=== PATIENT | female | born 1945 | race Caucasian/White ===

== ENCOUNTER → 2021-03-10 21:00 | Outpatient (REF) | payer MEDICARE, MEDICAID, SELFPAY | LOC: OLS.SW300 21:00 | PROVIDERS: Visit Provider Internal Medicine | DX: A04.72 Enterocolitis due to Clostridium difficile, not specified as recurrent (principal) | CPT/HCPCS: 87493 ==

== ENCOUNTER → 2021-03-14 14:50 | Outpatient (REF) | payer MEDICARE, MEDICAID, SELFPAY ==
[2021-03-14 15:17] LABS: Potassium 5.4 mmol/L (3.5-5.1)
== END ==
LOC: OLS.SW300 14:50
PROVIDERS: Visit Provider Internal Medicine
DX: N18.6 End stage renal disease (principal)
CPT/HCPCS: 36415; 84132

== ENCOUNTER → 2021-03-25 05:00 | Outpatient (REF) | payer MEDICARE, MEDICAID, SELFPAY ==
[2021-03-25 08:08] LABS: Hematocrit 22.8 % (37-47); Hemoglobin 7.1 g/dL (12.0-15.0); Mean Corp Hgb Conc 31.1 g/dL (32-36); Mean Corpuscular Hgb 27.2 pg (27.0-32.0); Mean Corpuscular Volume 87.4 fL (81-99); Mean Platelet Vol. 10.1 fl (6.2-12.0); Platelet Count 262 K/mm3 (150-450); RBC Distribution Width CV 18.6 % (11.6-14.6); RBC Distribution Width SD 58.9 fl (35.1-43.9); Red Blood Count 2.61 M/mm3 (4.2-5.4); White Blood Count 11.7 K/mm3 (4.4-11.0)
[2021-03-25 08:24] LABS: Albumin, Serum 1.3 g/dL (3.2-5.0); BUN 30 mg/dL (7-18); BUN/Creat Ratio 9.8 RATIO (10-20); Calcium,Total 7.9 mg/dL (8.5-10.1); Chloride 97 mmol/L (98-107); Creatinine, Serum 3.06 mg/dL (0.55-1.02); EST Glomerular Filtration Rate 16 mL/min (>60); Est Glom Filt Rate - Afr Amer 19 mL/min (>60); Glucose 99 mg/dL (74-106); Phosphorus 3.6 mg/dL (2.5-4.9); Potassium 3.4 mmol/L (3.5-5.1); Sodium Level 133 mmol/L (136-145)
== END ==
LOC: OLS.SW300 05:00
PROVIDERS: Visit Provider Internal Medicine
DX: Z99.2 Dependence on renal dialysis (principal); Z79.899 Other long term (current) drug therapy
CPT/HCPCS: 36415; 80069; 85027

== ENCOUNTER → 2021-03-29 21:00 | Outpatient (REF) | payer MEDICARE, MEDICAID, SELFPAY | LOC: OLS.SW300 21:00 | PROVIDERS: Visit Provider Internal Medicine | DX: A04.72 Enterocolitis due to Clostridium difficile, not specified as recurrent (principal) | CPT/HCPCS: 87493 ==

== ENCOUNTER → 2021-04-01 05:00 | Outpatient (REF) | payer MEDICARE, MEDICAID, SELFPAY ==
[2021-04-01 09:26] LABS: Hematocrit 22.8 % (37-47); Mean Corp Hgb Conc 30.7 g/dL (32-36); Mean Corpuscular Hgb 26.9 pg (27.0-32.0); Mean Corpuscular Volume 87.7 fL (81-99); Mean Platelet Vol. 9.7 fl (6.2-12.0); Platelet Count 216 K/mm3 (150-450); RBC Distribution Width CV 19.4 % (11.6-14.6); RBC Distribution Width SD 61.7 fl (35.1-43.9); White Blood Count 12.5 K/mm3 (4.4-11.0)
[2021-04-01 09:40] LABS: Albumin, Serum 1.3 g/dL (3.2-5.0); BUN 28 mg/dL (7-18); Calcium,Total 8.1 mg/dL (8.5-10.1); Chloride 99 mmol/L (98-107); Creatinine, Serum 3.11 mg/dL (0.55-1.02); EST Glomerular Filtration Rate 16 mL/min (>60); Est Glom Filt Rate - Afr Amer 19 mL/min (>60); Glucose 83 mg/dL (74-106); Phosphorus 3.9 mg/dL (2.5-4.9); Potassium 3.9 mmol/L (3.5-5.1); Sodium Level 137 mmol/L (136-145)
== END ==
LOC: OLS.SW300 05:00
PROVIDERS: Visit Provider Internal Medicine
DX: N18.9 Chronic kidney disease, unspecified (principal)
CPT/HCPCS: 36415; 80069; 85027

== ENCOUNTER → 2021-04-04 04:00 | Outpatient (REF) | payer MEDICARE, MEDICAID, SELFPAY ==
[2021-04-04 08:26] LABS: Hematocrit 23.9 % (37-47); Hemoglobin 7.4 g/dL (12.0-15.0); Mean Corpuscular Hgb 27.1 pg (27.0-32.0); Mean Corpuscular Volume 87.5 fL (81-99); Platelet Count 246 K/mm3 (150-450); RBC Distribution Width CV 19.1 % (11.6-14.6); RBC Distribution Width SD 61.4 fl (35.1-43.9); Red Blood Count 2.73 M/mm3 (4.2-5.4)
[2021-04-05 04:39] LABS: Cholesterol 124 mg/dL (200); High Density Lipoprotein 36 mg/dL; Triglycerides 54 mg/dL; Very Low Density Lipoprotein 11 mg/dL (5-40)
[2021-04-05 05:44] LABS: Hemoglobin A1c 5.2 % (3.8-5.6)
== END ==
LOC: OLS.SW300 04:00
PROVIDERS: Visit Provider Internal Medicine
DX: E11.22 Type 2 diabetes mellitus with diabetic chronic kidney disease (principal); N18.9 Chronic kidney disease, unspecified; D63.1 Anemia in chronic kidney disease
CPT/HCPCS: 36415; 80061; 83036; 85027

== ENCOUNTER → 2021-04-07 05:00 | Outpatient (REF) | payer MEDICARE, MEDICAID, SELFPAY ==
[2021-04-07 09:40] LABS: Hematocrit 24.6 % (37-47); Hemoglobin 7.7 g/dL (12.0-15.0); Mean Corp Hgb Conc 31.3 g/dL (32-36); Mean Corpuscular Hgb 26.7 pg (27.0-32.0); Mean Corpuscular Volume 85.4 fL (81-99); Mean Platelet Vol. 10.1 fl (6.2-12.0); Platelet Count 237 K/mm3 (150-450); RBC Distribution Width CV 18.5 % (11.6-14.6); RBC Distribution Width SD 58.2 fl (35.1-43.9); Red Blood Count 2.88 M/mm3 (4.2-5.4); White Blood Count 10.2 K/mm3 (4.4-11.0)
[2021-04-08 08:52] LABS: Albumin, Serum 1.5 g/dL (3.2-5.0); BUN 25 mg/dL (7-18); BUN/Creat Ratio 8.9 RATIO (10-20); Calcium,Total 8.3 mg/dL (8.5-10.1); Chloride 98 mmol/L (98-107); Creatinine, Serum 2.81 mg/dL (0.55-1.02); EST Glomerular Filtration Rate 17 mL/min (>60); Est Glom Filt Rate - Afr Amer 21 mL/min (>60); Glucose 93 mg/dL (74-106); Phosphorus 3.4 mg/dL (2.5-4.9); Potassium 3.7 mmol/L (3.5-5.1); Sodium Level 135 mmol/L (136-145)
== END ==
LOC: OLS.SW300 05:00
PROVIDERS: Visit Provider Internal Medicine
DX: E11.9 Type 2 diabetes mellitus without complications (principal); Z99.2 Dependence on renal dialysis
CPT/HCPCS: 36415; 80069; 85027

== ENCOUNTER → 2021-04-08 10:50 | Outpatient (REF) | payer MEDICARE, MEDICAID, SELFPAY | LOC: OLS.SW300 10:50 | PROVIDERS: Visit Provider Internal Medicine | DX: I51.9 Heart disease, unspecified (principal); R06.00 Dyspnea, unspecified | CPT/HCPCS: 36415; 83880 ==

== ENCOUNTER → 2021-04-15 05:00 | Outpatient (REF) | payer MEDICARE, MEDICAID, SELFPAY ==
[2021-04-15 08:26] LABS: Hematocrit 27.4 % (37-47); Hemoglobin 8.6 g/dL (12.0-15.0); Mean Corp Hgb Conc 31.4 g/dL (32-36); Mean Corpuscular Hgb 26.3 pg (27.0-32.0); Mean Corpuscular Volume 83.8 fL (81-99); Mean Platelet Vol. 10.1 fl (6.2-12.0); Platelet Count 266 K/mm3 (150-450); RBC Distribution Width CV 18.5 % (11.6-14.6); Red Blood Count 3.27 M/mm3 (4.2-5.4); White Blood Count 9.1 K/mm3 (4.4-11.0)
[2021-04-15 08:40] LABS: Albumin, Serum 1.6 g/dL (3.2-5.0); BUN 28 mg/dL (7-18); BUN/Creat Ratio 9.6 RATIO (10-20); Calcium,Total 8.8 mg/dL (8.5-10.1); Chloride 97 mmol/L (98-107); Creatinine, Serum 2.93 mg/dL (0.55-1.02); EST Glomerular Filtration Rate 17 mL/min (>60); Est Glom Filt Rate - Afr Amer 20 mL/min (>60); Glucose 57 mg/dL (74-106); Phosphorus 3.7 mg/dL (2.5-4.9); Potassium 3.9 mmol/L (3.5-5.1); Sodium Level 135 mmol/L (136-145)
== END ==
LOC: OLS.SW300 05:00
PROVIDERS: Visit Provider Internal Medicine
DX: N18.6 End stage renal disease (principal)
CPT/HCPCS: 36415; 80069; 85027

== ENCOUNTER → 2021-04-22 05:00 | Outpatient (REF) | payer MEDICARE, MEDICAID, SELFPAY ==
[2021-04-22 07:44] LABS: Hematocrit 22.8 % (37-47); Mean Corp Hgb Conc 30.7 g/dL (32-36); Mean Corpuscular Hgb 26.5 pg (27.0-32.0); Mean Corpuscular Volume 86.4 fL (81-99); Mean Platelet Vol. 10.4 fl (6.2-12.0); Platelet Count 190 K/mm3 (150-450); RBC Distribution Width SD 61.2 fl (35.1-43.9); Red Blood Count 2.64 M/mm3 (4.2-5.4); White Blood Count 8.1 K/mm3 (4.4-11.0)
[2021-04-22 08:05] LABS: Albumin, Serum 1.5 g/dL (3.2-5.0); BUN 28 mg/dL (7-18); BUN/Creat Ratio 10.2 RATIO (10-20); Chloride 97 mmol/L (98-107); Creatinine, Serum 2.74 mg/dL (0.55-1.02); EST Glomerular Filtration Rate 18 mL/min (>60); Est Glom Filt Rate - Afr Amer 22 mL/min (>60); Glucose 89 mg/dL (74-106); Phosphorus 3.8 mg/dL (2.5-4.9); Potassium 3.5 mmol/L (3.5-5.1); Sodium Level 135 mmol/L (136-145)
== END ==
LOC: OLS.SW300 05:00
PROVIDERS: Visit Provider Internal Medicine
DX: N18.6 End stage renal disease (principal)
CPT/HCPCS: 36415; 80069; 85027

== ENCOUNTER → 2021-04-25 05:00 | Outpatient (REF) | payer MEDICARE, MEDICAID, SELFPAY ==
[2021-04-25 08:45] LABS: Hematocrit 24.4 % (37-47); Hemoglobin 7.6 g/dL (12.0-15.0); Mean Corp Hgb Conc 31.1 g/dL (32-36); Mean Corpuscular Hgb 27.3 pg (27.0-32.0); Mean Corpuscular Volume 87.8 fL (81-99); POSITIVE MORPHOLOGY YES; Platelet Count 194 K/mm3 (150-450); RBC Distribution Width CV 21.5 % (11.6-14.6); RBC Distribution Width SD 69.7 fl (35.1-43.9); Red Blood Count 2.78 M/mm3 (4.2-5.4); White Blood Count 10.6 K/mm3 (4.4-11.0)
[2021-04-25 08:51] LABS: Scan Indicated on CBC? Y/N YES- FLAGS NOTED
[2021-04-25 09:11] LABS: Differential Comment SCANNED
== END ==
LOC: OLS.SW300 05:00
PROVIDERS: Visit Provider Internal Medicine
DX: E11.40 Type 2 diabetes mellitus with diabetic neuropathy, unspecified (principal); E11.22 Type 2 diabetes mellitus with diabetic chronic kidney disease; N18.6 End stage renal disease
CPT/HCPCS: 36415; 85027

== ENCOUNTER → 2021-04-29 05:00 | Outpatient (REF) | payer MEDICARE, MEDICAID, SELFPAY ==
[2021-04-29 07:21] LABS: Hematocrit 23.6 % (37-47); Hemoglobin 7.3 g/dL (12.0-15.0); Mean Corp Hgb Conc 30.9 g/dL (32-36); Mean Corpuscular Hgb 27.4 pg (27.0-32.0); Mean Corpuscular Volume 88.7 fL (81-99); Mean Platelet Vol. 10.2 fl (6.2-12.0); POSITIVE MORPHOLOGY YES; Platelet Count 171 K/mm3 (150-450); RBC Distribution Width CV 21.1 % (11.6-14.6); RBC Distribution Width SD 67.8 fl (35.1-43.9); Red Blood Count 2.66 M/mm3 (4.2-5.4); White Blood Count 10.1 K/mm3 (4.4-11.0)
[2021-04-29 07:23] LABS: Scan Indicated on CBC? Y/N YES- FLAGS NOTED
[2021-04-29 07:44] LABS: Albumin, Serum 1.6 g/dL (3.2-5.0); BUN 31 mg/dL (7-18); BUN/Creat Ratio 9.7 RATIO (10-20); Calcium,Total 8.8 mg/dL (8.5-10.1); Chloride 96 mmol/L (98-107); Creatinine, Serum 3.19 mg/dL (0.55-1.02); EST Glomerular Filtration Rate 15 mL/min (>60); Est Glom Filt Rate - Afr Amer 18 mL/min (>60); Glucose 159 mg/dL (74-106); Phosphorus 3.7 mg/dL (2.5-4.9); Potassium 3.6 mmol/L (3.5-5.1); Sodium Level 136 mmol/L (136-145)
== END ==
LOC: OLS.SW300 05:00
PROVIDERS: Visit Provider Internal Medicine
DX: E11.40 Type 2 diabetes mellitus with diabetic neuropathy, unspecified (principal); E11.22 Type 2 diabetes mellitus with diabetic chronic kidney disease; N18.6 End stage renal disease
CPT/HCPCS: 36415; 80069; 85027

== ENCOUNTER → 2021-05-06 05:00 | Outpatient (REF) | payer MEDICARE, MEDICAID, SELFPAY ==
[2021-05-06 07:20] LABS: Hematocrit 25.1 % (37-47); Mean Corp Hgb Conc 31.9 g/dL (32-36); Mean Corpuscular Hgb 28.1 pg (27.0-32.0); Mean Corpuscular Volume 88.1 fL (81-99); Mean Platelet Vol. 9.8 fl (6.2-12.0); Platelet Count 240 K/mm3 (150-450); RBC Distribution Width CV 19.6 % (11.6-14.6); RBC Distribution Width SD 63.1 fl (35.1-43.9); Red Blood Count 2.85 M/mm3 (4.2-5.4); White Blood Count 10.4 K/mm3 (4.4-11.0)
[2021-05-06 07:43] LABS: Albumin, Serum 1.6 g/dL (3.2-5.0); BUN 28 mg/dL (7-18); BUN/Creat Ratio 10.6 RATIO (10-20); Calcium,Total 8.8 mg/dL (8.5-10.1); Chloride 97 mmol/L (98-107); Creatinine, Serum 2.63 mg/dL (0.55-1.02); EST Glomerular Filtration Rate 19 mL/min (>60); Est Glom Filt Rate - Afr Amer 23 mL/min (>60); Glucose 35 mg/dL (74-106); Potassium 3.3 mmol/L (3.5-5.1); Sodium Level 135 mmol/L (136-145)
== END ==
LOC: OLS.SW300 05:00
PROVIDERS: Visit Provider Internal Medicine
DX: E11.22 Type 2 diabetes mellitus with diabetic chronic kidney disease (principal); E11.40 Type 2 diabetes mellitus with diabetic neuropathy, unspecified; N18.6 End stage renal disease
CPT/HCPCS: 36415; 80069; 85027

== ENCOUNTER → 2021-05-13 05:00 | Outpatient (REF) | payer MEDICARE, MEDICAID, SELFPAY ==
[2021-05-13 09:12] LABS: Hematocrit 28.3 % (37-47); Hemoglobin 8.9 g/dL (12.0-15.0); Mean Corp Hgb Conc 31.4 g/dL (32-36); Mean Corpuscular Hgb 27.4 pg (27.0-32.0); Mean Corpuscular Volume 87.1 fL (81-99); Mean Platelet Vol. 10.1 fl (6.2-12.0); Platelet Count 213 K/mm3 (150-450); RBC Distribution Width SD 61.3 fl (35.1-43.9); Red Blood Count 3.25 M/mm3 (4.2-5.4); White Blood Count 8.7 K/mm3 (4.4-11.0)
[2021-05-13 09:32] LABS: Albumin, Serum 1.7 g/dL (3.2-5.0); BUN 30 mg/dL (7-18); BUN/Creat Ratio 9.8 RATIO (10-20); Calcium,Total 8.7 mg/dL (8.5-10.1); Chloride 95 mmol/L (98-107); Creatinine, Serum 3.07 mg/dL (0.55-1.02); EST Glomerular Filtration Rate 16 mL/min (>60); Est Glom Filt Rate - Afr Amer 19 mL/min (>60); Glucose 53 mg/dL (74-106); Phosphorus 3.3 mg/dL (2.5-4.9); Potassium 3.7 mmol/L (3.5-5.1); Sodium Level 133 mmol/L (136-145)
== END ==
LOC: OLS.SW300 05:00
PROVIDERS: Visit Provider Internal Medicine
DX: E11.22 Type 2 diabetes mellitus with diabetic chronic kidney disease (principal); E11.40 Type 2 diabetes mellitus with diabetic neuropathy, unspecified; N18.6 End stage renal disease
CPT/HCPCS: 36415; 80069; 85027

== ENCOUNTER 2021-05-18 19:11 | Emergency (ER) | payer MEDICARE, MEDICAID, SELFPAY ==
[2021-05-18 19:12] VITALS: BP 202/73; PULSE 70; RESP 20; TEMP 36.6; O2SAT 100; BMI 28.8
--- NOTE | 2021-05-18 19:56 | EKG12_ITS ---
Test Reason : HYPERTENSION Blood Pressure : / mmHG Vent. Rate : 069 BPM Atrial Rate : 069 BPM P-R Int : 172 ms QRS Dur : 084 ms QT Int : 444 ms P-R-T Axes : 033 -13 -76 degrees QTc Int : 475 ms Normal sinus rhythm T wave abnormality, consider anterolateral ischemia Prolonged QT Abnormal ECG No previous ECGs available Confirmed by GABRIEL ROGERS, MC ([id number]), mapping editor CONRAD GARCIA ([id number]) on 05/24/2021 1:59:56 PM Referred By: ZION Confirmed By:MC RIOS MD
[2021-05-18 20:22] LABS: Absolute Lymphocyte Count 1.71 X10^3/uL (0.83-4.51); Absolute Neutrophil Count 5.9 X10^3/uL (2.0-7.7); Basophil# 0.08 X10^3/uL; Basophil% 0.9 % (0-1); Eosinophil# 0.32 X10^3/uL; Eosinophils% 3.7 % (0-5); Hematocrit 28.4 % (37-47); Hemoglobin 8.7 g/dL (12.0-15.0); Lymphocyte # 1.71 X10^3/ul (0.83-4.51); Lymphocyte % 19.5 % (19-41); Mean Corp Hgb Conc 30.6 g/dL (32-36); Mean Corpuscular Hgb 26.8 pg (27.0-32.0); Mean Corpuscular Volume 87.4 fL (81-99); Mean Platelet Vol. 10.4 fl (6.2-12.0); Monocyte# 0.69 X10^3/uL; Monocyte% 7.9 % (0-10); NRBC Flagged by Analyzer 0 % (0-5); Neutrophil % 67.4 % (47-70); Platelet Count 184 K/mm3 (150-450); RBC Distribution Width CV 17.8 % (11.6-14.6); RBC Distribution Width SD 57.2 fl (35.1-43.9); Red Blood Count 3.25 M/mm3 (4.2-5.4); White Blood Count 8.8 K/mm3 (4.4-11.0)
[2021-05-18 20:39] VITALS: BP 194/77; PULSE 70; RESP 15; O2SAT 100
[2021-05-18 20:43] LABS: Anion Gap 2 (5-15); BUN 29 mg/dL (7-18); BUN/Creat Ratio 11.6 RATIO (10-20); Calcium,Total 8.8 mg/dL (8.5-10.1); Chloride 97 mmol/L (98-107); Creatinine, Serum 2.49 mg/dL (0.55-1.02); EST Glomerular Filtration Rate 20 mL/min (>60); Est Glom Filt Rate - Afr Amer 24 mL/min (>60); Estimated Creatinine Clearance 17.57 ml/min; Glucose 105 mg/dL (74-106); Potassium 3.7 mmol/L (3.5-5.1); Sodium Level 135 mmol/L (136-145); Troponin-I HS 30 pg/mL (3.0-54.0)
[2021-05-18] MEDS: hydrALAZINE 20 MG/ML Vial 5 MG IV (20:51)
[2021-05-18 21:10] VITALS: BP 190/82; PULSE 68; RESP 15; O2SAT 100
[2021-05-18 23:00] VITALS: BP 181/106; PULSE 69; RESP 16; O2SAT 100
[2021-05-18] MEDS: Labetalol (Prefilled) 20 MG/4 ML IV (23:01)
[2021-05-18 23:31] VITALS: BP 156/80; PULSE 70; RESP 15; O2SAT 99
--- NOTE | 2021-05-18 23:40 | EDS_ITS ---
HPI History of Present Illness Chief Complaint: Hypertension Onset/Context/Timing Onset: Today Context: Gradual Onset Timing: Continuous Worsened by: Nothing Relieved by: Nothing Narrative Narrative: Patient presents with elevated blood pressure that was noticed tonight. Patient states she was sent here because her blood pressure was elevated. Patient states she feels weak. Patient denies any chest pain or shortness of breath. Patient denies any nausea or vomiting. Patient states she was given a dose of clonidine which had no improvement of her symptoms. Patient states nothing makes it worse and nothing makes it better. [facility] Medical History (Updated 05/18/21 @ 23:[address] Elio Garcia DO) Hypertension Allergy/AdvReac Type Severity Reaction Status Date / Time Sulfa (Sulfonamide Allergy NEEDS Verified 05/18/21 19:58 Antibiotics) FOLLOW-UP Social History Smoking Status: Unknown if ever smoked ROS ROS ED Constitutional Constitutional ED: Denies chills or fever(s) Eyes Eyes: Denies blurry vision or change in vision ENT ENT ED: Reports rhinorrhea and sore throat Cardiovascular Cardiovascular: Denies chest pain or palpitations Respiratory/Chest Respiratory/Chest: Denies cough or dyspnea Gastrointestinal Gastrointestinal: Denies nausea or vomiting Genitourinary Genitourinary ED: Denies dysuria or hematuria Musculoskeletal Musculoskeletal: Denies back pain or neck pain Integumentary Denies abscess or rash Neurologic Neurologic: Denies headache(s) or weakness Allergic/Immunologic Allergic/Immunologic ED: Denies mouth swelling or urticaria EXAM Physical Exam Const Vital Signs: 05/18/21 19:12 05/18/21 20:39 05/18/21 21:10 Temperature 97.8 F Temperature Source Oral Pulse Rate 70 70 68 Respiratory Rate 20 H 15 15 Respiratory Effort Respiratory Pattern Blood Pressure 202/73 H 194/77 H 190/82 H Blood Pressure Mean 116 116 118 Pulse Ox 100 100 100 Oxygen Delivery Method Room Air Venturi Mask Oxygen Flow Rate (L/min) 2 05/18/21 21:11 05/18/21 23:00 05/18/21 23:31 Temperature Temperature Source Pulse Rate 69 70 Respiratory Rate 16 15 Respiratory Effort Non-Labored Respiratory Pattern Normal Blood Pressure 181/106 H 156/80 H Blood Pressure Mean 131 105 Pulse Ox 100 99 Oxygen Delivery Method Nasal Cannula Nasal Cannula Oxygen Flow Rate (L/min) 2 2 Positive well nourished and well developed General Appearance ED: well developed HEENT Reports moist mucous membranes Neck supple and no JVD Resp normal respiratory effort and clear to auscultation bilaterally Cardio regular rate, regular rhythm and no murmurs GI normal to inspection, nondistended, normoactive bowel sounds and non-tender Palpation: soft Extremity normal to inspection General Extremety ED: Negative for edema or tenderness General Extremity: Negative for edema Neuro oriented x3, CN's II-XII intact bilaterally and no sensory deficits noted Sensorium / Orientation: alert Motor Exam: strength 5/5 throughout Psych mental status grossly normal Skin no rashes or lesions noted MDM MDM MDM Narrative Medical decision making narrative: Patient was given a dose of hydralazine here. EKG was obtained. On my interpretation, it showed a normal sinus rhythm with a rate of 69. FL interval, QRS interval, and QTc intervals were all normal. [place] was normal. There are nonspecific ST-T wave changes in V3, V4, and V5. CBC shows a mild anemia with a hemoglobin of 8.7 and hematocrit 28.4. These are consistent with prior results. Basic metabolic profile showed a BUN of 29 and creatinine of 2.49. These are consistent with prior results. High-sensitivity troponin was normal. Patient's blood pressure was still elevated. Patient was given a dose of labetalol. Patient's blood pressure improved to 156/80. Patient was feeling better and wants to go home. Patient will be discharged back to her extended care facility. Patient was instructed to follow-up with her primary care physician in 3 to 5 days for further evaluation. Patient understood and was agreeable with the plan. All questions were answered. Lab Data Attestation: I reviewed the patient's lab results. Labs: Laboratory Results - last 24 hr 05/18/21 05/18/21 20:10 20:10 WBC 8.8 RBC 3.25 L Hgb 8.7 L Hct 28.4 L MCV 87.4 MCH 26.8 L MCHC 30.6 L RDW Std Deviation 57.2 H RDW Coeff of Cat 17.8 H Plt Count 184 MPV 10.4 Immature Gran % (Auto) 0.600 Neut % (Auto) 67.4 Lymph % (Auto) 19.5 [place] % (Auto) 7.9 Eos % (Auto) 3.7 Baso % (Auto) 0.9 Absolute Neuts (auto) 5.9 Absolute Lymphs (auto) 1.71 Nucleated RBC % 0 Sodium 135 L Potassium 3.7 Chloride 97 L Carbon Dioxide 36.0 H Anion Gap 2 L BUN 29 H Creatinine 2.49 H Estim Creat Clear Calc 17.57 Est GFR (MDRD) Af Amer 24 L Est GFR (MDRD) Non-Af 20 L BUN/Creatinine Ratio 11.6 Glucose 105 Calcium 8.8 Troponin I High Sens 30 Discharge Plan Triage Chief Complaint: Hypertension ED Provider: Elio Garcia Dx/Rx/DC Orders Clinical Impression: Hypertension Instructions: ED Hypertension, Established Primary Care Provider: Laura Sandhu Referrals: Laura Sandhu MD [Primary Care Provider] - 3-5 Days Disposition Disposition: Home, Self Care
[2021-05-19 00:38] VITALS: BP 156/80; PULSE 70; RESP 15; O2SAT 99
== END 2021-05-19 00:41 | disposition home or self-care (01) ==
PROVIDERS: Emergency Provider Emergency Medicine; PCP Internal Medicine
DX: I10 Essential (primary) hypertension (principal)
CPT/HCPCS: 80048; 84484; 85025; 93005; 96374; 96375; 99285

== ENCOUNTER → 2021-05-20 05:20 | Outpatient (REF) | payer MEDICARE, MEDICAID, SELFPAY ==
[2021-05-20 09:03] LABS: Hematocrit 27.4 % (37-47); Hemoglobin 8.6 g/dL (12.0-15.0); Mean Corp Hgb Conc 31.4 g/dL (32-36); Mean Corpuscular Hgb 27.4 pg (27.0-32.0); Mean Corpuscular Volume 87.3 fL (81-99); Mean Platelet Vol. 10.6 fl (6.2-12.0); Platelet Count 198 K/mm3 (150-450); RBC Distribution Width SD 56.9 fl (35.1-43.9); Red Blood Count 3.14 M/mm3 (4.2-5.4); White Blood Count 7.6 K/mm3 (4.4-11.0)
[2021-05-20 09:04] LABS: Albumin, Serum 1.7 g/dL (3.2-5.0); BUN 33 mg/dL (7-18); Calcium,Total 8.5 mg/dL (8.5-10.1); Chloride 98 mmol/L (98-107); Creatinine, Serum 3.29 mg/dL (0.55-1.02); EST Glomerular Filtration Rate 15 mL/min (>60); Est Glom Filt Rate - Afr Amer 18 mL/min (>60); Glucose 119 mg/dL (74-106); Phosphorus 3.5 mg/dL (2.5-4.9); Potassium 3.9 mmol/L (3.5-5.1); Sodium Level 135 mmol/L (136-145)
== END ==
LOC: OLS.SW300 05:20
PROVIDERS: PCP Internal Medicine; Visit Provider Internal Medicine
DX: N19 Unspecified kidney failure (principal); Z99.2 Dependence on renal dialysis
CPT/HCPCS: 36415; 80069; 85027

== ENCOUNTER → 2021-05-27 05:00 | Outpatient (REF) | payer MEDICARE, MEDICAID, SELFPAY ==
[2021-05-27 09:12] LABS: Mean Corpuscular Volume 87.1 fL (81-99); Mean Platelet Vol. 10.2 fl (6.2-12.0); Platelet Count 134 K/mm3 (150-450); RBC Distribution Width CV 18.4 % (11.6-14.6); RBC Distribution Width SD 57.8 fl (35.1-43.9); Red Blood Count 3.33 M/mm3 (4.2-5.4); White Blood Count 7.1 K/mm3 (4.4-11.0)
[2021-05-27 09:22] LABS: Albumin, Serum 1.6 g/dL (3.2-5.0); BUN 21 mg/dL (7-18); BUN/Creat Ratio 8.4 RATIO (10-20); Calcium,Total 8.5 mg/dL (8.5-10.1); Chloride 99 mmol/L (98-107); Creatinine, Serum 2.51 mg/dL (0.55-1.02); EST Glomerular Filtration Rate 20 mL/min (>60); Est Glom Filt Rate - Afr Amer 24 mL/min (>60); Glucose 68 mg/dL (74-106); Phosphorus 3.1 mg/dL (2.5-4.9); Potassium 3.7 mmol/L (3.5-5.1); Sodium Level 137 mmol/L (136-145)
== END ==
LOC: OLS.SW300 05:00
PROVIDERS: PCP Internal Medicine; Visit Provider Internal Medicine
DX: E11.22 Type 2 diabetes mellitus with diabetic chronic kidney disease (principal); E11.40 Type 2 diabetes mellitus with diabetic neuropathy, unspecified; N18.6 End stage renal disease
CPT/HCPCS: 36415; 80069; 85027

== ENCOUNTER 2021-05-30 03:11 | Emergency (ER) | payer MEDICARE, MEDICAID, SELFPAY ==
[2021-05-30 03:11] VITALS: BP 201/74; PULSE 84; RESP 20; TEMP 36.1; O2SAT 100; BMI 29.6
--- NOTE | 2021-05-30 03:41 | EX.ED.DYSGE1 ---
HPI History of Present Illness Chief Complaint: Shortness of Breath Narrative Narrative: Patient is a 75-year-old female from the intermediate with past medical history of malignant hypertension and chronic renal failure currently on dialysis. She also wears oxygen 22/01. Patient states that she got into a argument with the intermediate staff this evening/morning and became very worked up. During this she reported feeling shortness of breath and secondary to this was sent to the hospital for evaluation. Upon arrival to the ER the patient states that she feels fine and no longer complains of any type of chest discomfort or shortness of breath. She also states that she does not want any type of testing at this time. [facility] Medical History Hypertension Home Medications B complex with C 20-folic acid [Renal Caps] 1 cap PO DAILY 05/30/21 [History Last Taken Unknown] Lactobacillus rhamnosus GG 1 cap PO DAILY 05/30/21 [History Last Taken Unknown] acetaminophen 650 mg PO Q4H PRN 05/30/21 [History Last Taken Unknown] acetaminophen 650 mg NJ Q4H PRN 05/30/21 [History Last Taken Unknown] ascorbic acid (vitamin C) 500 mg PO BID 05/30/21 [History Last Taken Unknown] aspirin 81 mg PO DAILY 05/30/21 [History Last Taken Unknown] bisacodyl 10 mg NJ DAILY PRN 05/30/21 [History Last Taken Unknown] calcitriol 0.25 mcg PO DAILY 05/30/21 [History Last Taken Unknown] calcium carbonate-vitamin D3 [Calcium 600 + D(3)] 1 tab PO BID 05/30/21 [History Last Taken Unknown] carvedilol 6.25 mg PO BID 05/30/21 [History Last Taken Unknown] dextrose [Glucose Gel] 15 g PO Q15M PRN 05/30/21 [History Last Taken Unknown] gabapentin 300 mg PO QHS 05/30/21 [History Last Taken Unknown] glucagon [Glucagon Emergency Kit] 1 mg IM PRN PRN 05/30/21 [History Last Taken Unknown] guaifenesin 200 mg PO Q4H PRN 05/30/21 [History Last Taken Unknown] insulin glargine [Lantus Solostar U-100 Insulin] 10 unit SUBCUT DAILY 05/30/21 [History Last Taken Unknown] insulin lispro [Humalog Pen] See Protocol SUBCUT TID 05/30/21 [History Last Taken Unknown] lidocaine-prilocaine 1 applic TOPICAL TUWEFR 05/30/21 [History Last Taken Unknown] magnesium hydroxide [Milk of Magnesia] 400 mg PO DAILY PRN 05/30/21 [History Last Taken Unknown] menthol-zinc oxide [Calmoseptine] 1 applic TOPICAL DAILY 05/30/21 [History Last Taken Unknown] midodrine 10 mg PO MOTUWEFR 05/30/21 [History Last Taken Unknown] nystatin 1 applic TOPICAL TID 05/30/21 [History Last Taken Unknown] omeprazole 40 mg PO DAILY 05/30/21 [History Last Taken Unknown] ondansetron HCl 4 mg PO Q8H PRN 05/30/21 [History Last Taken Unknown] paroxetine HCl 10 mg PO DAILY 05/30/21 [History Last Taken Unknown] potassium chloride 20 meq PO DAILY 05/30/21 [History Last Taken Unknown] sodium phosphates [Fleet Enema] 118 ml NJ DAILY PRN 05/30/21 [History Last Taken Unknown] zinc sulfate [Zinc-220] 50 mg PO QHS 05/30/21 [History Last Taken Unknown] Allergy/AdvReac Type Severity Reaction Status Date / Time Sulfa (Sulfonamide Allergy NEEDS Verified 05/30/21 03:29 Antibiotics) FOLLOW-UP Social History Smoking Status: Unknown if ever smoked ROS ROS ED Constitutional Constitutional ED: Denies chills or fever(s) ENT ENT ED: Denies sore throat Cardiovascular Cardiovascular: Denies chest pain Respiratory/Chest Respiratory/Chest: Denies cough or dyspnea Gastrointestinal Gastrointestinal: Denies abdominal pain, diarrhea, nausea or vomiting Genitourinary Genitourinary ED: Denies dysuria Musculoskeletal Musculoskeletal: Denies myalgias Neurologic Neurologic: Denies headache(s) EXAM Physical Exam Const Vital Signs: 05/30/21 03:11 05/30/21 03:21 Temperature 97 F L Temperature Source Temporal Pulse Rate 84 Respiratory Rate 20 H Respiratory Effort Labored Respiratory Depth Normal Respiratory Pattern Normal Blood Pressure 201/74 H Blood Pressure Mean 116 Pulse Ox 100 Oxygen Delivery Method Nasal Cannula Oxygen Flow Rate (L/min) 4 Positive well nourished, well developed and obese General Appearance ED: well developed Nutritional Appearance: obese HEENT Reports dry mucous membranes HEENT Narrative: No tongue or lip swelling no oral lesions no airway edema or compromise Mouth ED: Yes dry mucous membranes Mouth: dry mucous membranes Eyes PERRL and EOMs intact bilaterally General Eye ED: Yes pale conjunctiva Neck supple and no JVD Resp normal respiratory effort Resp Narrative: Breath sounds are diminished throughout with faint wheeze in the bilateral bases but no nasal flaring retractions tachypnea or accessory muscle use Cardio regular rate and regular rhythm GI normal to inspection, nondistended, normoactive bowel sounds, non-tender, non-distended and no masses GI Narrative: No voluntary guarding or rigidity no pulsatile mass Auscultation: normoactive bowel sounds Palpation: soft Extremity Extremity Narrative: Patient has chronic changes to her bilateral lower legs such as 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 Patient has a fistula in her left upper arm consistent with renal failure and dialysis that has a palpable thrill and good bruit Neuro oriented x3 and CN's II-XII intact bilaterally Sensorium / Orientation: alert Psych Psych Narrative: Patient has a flat/depressed affect Skin Skin Narrative: Patient has chronic stasis changes to her bilateral lower extremities consistent with history of diabetes MDM MDM MDM Narrative Medical decision making narrative: Patient presented to the ER hypertensive but otherwise was satting 100% on her normal nasal cannula oxygen. She is awake alert and oriented and her paperwork states that she is her own guardian. She reports upon arrival that she no longer has any type of chest discomfort or shortness of breath. She also reports that she does not want to have any type of emergency room work-up. I discussed with the patient as she has chronic medical conditions that the safe thing to do at this time would be a chest x-ray and basic blood work because of her shortness of breath earlier. The patient reiterates that she does not want any type of emergency room work-up obtained. Therefore at this time the patient is awake alert and oriented and therefore is competent to refuse any type of testing. Therefore I will not violate the patient's rights and I will allow her to be discharged back to the intermediate as she does not want any type of emergency room work-up at this time Discharge Plan Triage Chief Complaint: Shortness of Breath ED Provider: Sarbjit Fulton Dx/Rx/DC Orders Clinical Impression: Malignant hypertension, Chronic kidney failure, Dyspnea Instructions: CKD Dc, ED Dyspnea, ED Hypertension, Established Primary Care Provider: Laura Sandhu Referrals: Laura Sandhu MD [Primary Care Provider] - Disposition Disposition: Home, Self Care
[2021-05-30 04:00] VITALS: BP 195/75; PULSE 72; RESP 20; O2SAT 96
--- NOTE | 2021-05-30 04:38 | ED.RN ---
Report called to [facility]as[facility] at [facility].
== END 2021-05-30 04:39 | disposition home or self-care (01) ==
LOC: ED 04:08
PROVIDERS: Emergency Provider Emergency Medicine; PCP Internal Medicine
DX: I12.9 Hypertensive chronic kidney disease with stage 1 through stage 4 chronic kidney disease, or unspecified chronic kidney disease (principal); N18.9 Chronic kidney disease, unspecified; R06.00 Dyspnea, unspecified; E66.9 Obesity, unspecified; Z79.82 Long term (current) use of aspirin; Z79.899 Other long term (current) drug therapy; Z99.2 Dependence on renal dialysis; Z79.4 Long term (current) use of insulin
CPT/HCPCS: 99284

== ENCOUNTER → 2021-06-01 09:44 | Outpatient (REF) | payer MEDICARE, MEDICAID, SELFPAY | LOC: OLS.SW300 09:44 | PROVIDERS: PCP Internal Medicine; Visit Provider Internal Medicine | DX: R19.7 Diarrhea, unspecified (principal) | CPT/HCPCS: 87493 ==

== ENCOUNTER → 2021-06-03 05:00 | Outpatient (REF) | payer MEDICARE, MEDICAID, SELFPAY ==
[2021-06-03 07:30] LABS: Hematocrit 29.2 % (37-47); Hemoglobin 8.9 g/dL (12.0-15.0); Mean Corp Hgb Conc 30.5 g/dL (32-36); Mean Corpuscular Hgb 26.8 pg (27.0-32.0); Mean Platelet Vol. 10.7 fl (6.2-12.0); Platelet Count 199 K/mm3 (150-450); RBC Distribution Width CV 17.9 % (11.6-14.6); RBC Distribution Width SD 56.6 fl (35.1-43.9); Red Blood Count 3.32 M/mm3 (4.2-5.4); White Blood Count 8.7 K/mm3 (4.4-11.0)
[2021-06-03 08:09] LABS: Albumin, Serum 1.7 g/dL (3.2-5.0); BUN 31 mg/dL (7-18); BUN/Creat Ratio 9.9 RATIO (10-20); Calcium,Total 8.7 mg/dL (8.5-10.1); Chloride 100 mmol/L (98-107); Creatinine, Serum 3.14 mg/dL (0.55-1.02); EST Glomerular Filtration Rate 15 mL/min (>60); Est Glom Filt Rate - Afr Amer 19 mL/min (>60); Glucose 91 mg/dL (74-106); Phosphorus 2.6 mg/dL (2.5-4.9); Potassium 4.8 mmol/L (3.5-5.1); Sodium Level 135 mmol/L (136-145)
== END ==
LOC: OLS.SW300 05:00
PROVIDERS: PCP Internal Medicine; Visit Provider Internal Medicine
DX: N18.6 End stage renal disease (principal)
CPT/HCPCS: 36415; 80069; 85027

== ENCOUNTER → 2021-06-10 04:00 | Outpatient (REF) | payer MEDICARE, MEDICAID, SELFPAY ==
[2021-06-10 09:18] LABS: Hematocrit 29.9 % (37-47); Hemoglobin 9.3 g/dL (12.0-15.0); Mean Corp Hgb Conc 31.1 g/dL (32-36); Mean Corpuscular Volume 86.9 fL (81-99); Platelet Count 193 K/mm3 (150-450); RBC Distribution Width CV 18.2 % (11.6-14.6); RBC Distribution Width SD 57.2 fl (35.1-43.9); Red Blood Count 3.44 M/mm3 (4.2-5.4); White Blood Count 8.5 K/mm3 (4.4-11.0)
[2021-06-10 09:40] LABS: Albumin, Serum 1.6 g/dL (3.2-5.0); BUN 40 mg/dL (7-18); BUN/Creat Ratio 11.7 RATIO (10-20); Calcium,Total 8.5 mg/dL (8.5-10.1); Chloride 100 mmol/L (98-107); Creatinine, Serum 3.43 mg/dL (0.55-1.02); EST Glomerular Filtration Rate 14 mL/min (>60); Est Glom Filt Rate - Afr Amer 17 mL/min (>60); Glucose 104 mg/dL (74-106); Phosphorus 2.1 mg/dL (2.5-4.9); Potassium 4.7 mmol/L (3.5-5.1); Sodium Level 138 mmol/L (136-145)
== END ==
LOC: OLS.SW300 04:00
PROVIDERS: PCP Internal Medicine; Referring Provider Internal Medicine; Visit Provider Internal Medicine
DX: E11.22 Type 2 diabetes mellitus with diabetic chronic kidney disease (principal); E11.40 Type 2 diabetes mellitus with diabetic neuropathy, unspecified; N18.6 End stage renal disease
CPT/HCPCS: 36415; 80069; 85027

== ENCOUNTER → 2021-06-17 05:00 | Outpatient (REF) | payer MEDICARE, MEDICAID, SELFPAY ==
[2021-06-17 06:35] LABS: Hematocrit 29.5 % (37-47); Hemoglobin 9.3 g/dL (12.0-15.0); Mean Corp Hgb Conc 31.5 g/dL (32-36); Mean Corpuscular Hgb 26.9 pg (27.0-32.0); Mean Corpuscular Volume 85.3 fL (81-99); Mean Platelet Vol. 9.8 fl (6.2-12.0); Platelet Count 208 K/mm3 (150-450); RBC Distribution Width CV 18.5 % (11.6-14.6); RBC Distribution Width SD 56.3 fl (35.1-43.9); Red Blood Count 3.46 M/mm3 (4.2-5.4); White Blood Count 8.3 K/mm3 (4.4-11.0)
[2021-06-17 06:58] LABS: Albumin, Serum 1.5 g/dL (3.2-5.0); BUN 34 mg/dL (7-18); BUN/Creat Ratio 11.3 RATIO (10-20); Calcium,Total 7.9 mg/dL (8.5-10.1); Chloride 100 mmol/L (98-107); Creatinine, Serum 3.01 mg/dL (0.55-1.02); EST Glomerular Filtration Rate 16 mL/min (>60); Est Glom Filt Rate - Afr Amer 19 mL/min (>60); Glucose 104 mg/dL (74-106); Phosphorus 2.1 mg/dL (2.5-4.9); Potassium 4.3 mmol/L (3.5-5.1); Sodium Level 137 mmol/L (136-145)
== END ==
LOC: OLS.SW300 05:00
PROVIDERS: PCP Internal Medicine; Visit Provider Internal Medicine
DX: Z99.2 Dependence on renal dialysis (principal); N17.9 Acute kidney failure, unspecified
CPT/HCPCS: 36415; 80069; 85027

== ENCOUNTER → 2021-06-24 13:05 | Outpatient (REF) | payer MEDICARE, MEDICAID, SELFPAY ==
[2021-06-24 14:10] LABS: Hematocrit 30.9 % (37-47); Hemoglobin 9.6 g/dL (12.0-15.0); Mean Corp Hgb Conc 31.1 g/dL (32-36); Mean Corpuscular Hgb 26.3 pg (27.0-32.0); Mean Corpuscular Volume 84.7 fL (81-99); Mean Platelet Vol. 10.4 fl (6.2-12.0); Platelet Count 189 K/mm3 (150-450); RBC Distribution Width CV 19.6 % (11.6-14.6); RBC Distribution Width SD 58.8 fl (35.1-43.9); Red Blood Count 3.65 M/mm3 (4.2-5.4); White Blood Count 9.4 K/mm3 (4.4-11.0)
[2021-06-24 14:31] LABS: Albumin, Serum 1.5 g/dL (3.2-5.0); BUN 32 mg/dL (7-18); BUN/Creat Ratio 11.9 RATIO (10-20); Chloride 100 mmol/L (98-107); Creatinine, Serum 2.68 mg/dL (0.55-1.02); EST Glomerular Filtration Rate 18 mL/min (>60); Est Glom Filt Rate - Afr Amer 22 mL/min (>60); Glucose 151 mg/dL (74-106); Potassium 4.5 mmol/L (3.5-5.1); Sodium Level 135 mmol/L (136-145)
== END ==
LOC: OLS.SW300 13:05
PROVIDERS: PCP Internal Medicine; Visit Provider Internal Medicine
DX: E11.40 Type 2 diabetes mellitus with diabetic neuropathy, unspecified (principal); E11.22 Type 2 diabetes mellitus with diabetic chronic kidney disease; N18.6 End stage renal disease
CPT/HCPCS: 36415; 80069; 85027

== ENCOUNTER → 2021-06-30 04:00 | Outpatient (REF) | payer MEDICARE, MEDICAID, SELFPAY ==
[2021-06-30 09:20] LABS: Hematocrit 29.6 % (37-47); Hemoglobin 9.3 g/dL (12.0-15.0); Mean Corp Hgb Conc 31.4 g/dL (32-36); Mean Corpuscular Hgb 27.2 pg (27.0-32.0); Mean Corpuscular Volume 86.5 fL (81-99); Mean Platelet Vol. 10.4 fl (6.2-12.0); POSITIVE MORPHOLOGY YES; Platelet Count 193 K/mm3 (150-450); RBC Distribution Width CV 20.6 % (11.6-14.6); RBC Distribution Width SD 63.7 fl (35.1-43.9); Red Blood Count 3.42 M/mm3 (4.2-5.4)
[2021-06-30 09:22] LABS: Scan Indicated on CBC? Y/N YES- FLAGS NOTED
[2021-06-30 09:25] LABS: Albumin, Serum 1.6 g/dL (3.2-5.0); BUN 37 mg/dL (7-18); BUN/Creat Ratio 12.4 RATIO (10-20); Calcium,Total 7.8 mg/dL (8.5-10.1); Chloride 97 mmol/L (98-107); Creatinine, Serum 2.98 mg/dL (0.55-1.02); EST Glomerular Filtration Rate 16 mL/min (>60); Est Glom Filt Rate - Afr Amer 20 mL/min (>60); Glucose 94 mg/dL (74-106); Phosphorus 2.8 mg/dL (2.5-4.9); Potassium 4.1 mmol/L (3.5-5.1); Sodium Level 137 mmol/L (136-145)
== END ==
LOC: OLS.SW300 04:00
PROVIDERS: PCP Internal Medicine; Referring Provider Internal Medicine; Visit Provider Internal Medicine
DX: E11.22 Type 2 diabetes mellitus with diabetic chronic kidney disease (principal); N18.6 End stage renal disease
CPT/HCPCS: 36415; 80069; 85027

== ENCOUNTER → 2021-07-07 04:00 | Outpatient (REF) | payer MEDICARE, MEDICAID, SELFPAY ==
[2021-07-07 07:50] LABS: Hematocrit 33.8 % (37-47); Hemoglobin 10.4 g/dL (12.0-15.0); Mean Corp Hgb Conc 30.8 g/dL (32-36); Mean Corpuscular Hgb 26.7 pg (27.0-32.0); Mean Corpuscular Volume 86.7 fL (81-99); Mean Platelet Vol. 10.3 fl (6.2-12.0); Platelet Count 138 K/mm3 (150-450); RBC Distribution Width SD 63.4 fl (35.1-43.9)
[2021-07-07 08:03] LABS: Albumin, Serum 1.7 g/dL (3.2-5.0); BUN 20 mg/dL (7-18); BUN/Creat Ratio 10.4 RATIO (10-20); Calcium,Total 8.3 mg/dL (8.5-10.1); Chloride 95 mmol/L (98-107); Creatinine, Serum 1.93 mg/dL (0.55-1.02); EST Glomerular Filtration Rate 27 mL/min (>60); Est Glom Filt Rate - Afr Amer 33 mL/min (>60); Glucose 58 mg/dL (74-106); Phosphorus 2.3 mg/dL (2.5-4.9); Potassium 3.7 mmol/L (3.5-5.1); Sodium Level 135 mmol/L (136-145)
== END ==
LOC: OLS.SW300 04:00
PROVIDERS: PCP Internal Medicine; Referring Provider Internal Medicine; Visit Provider Internal Medicine
DX: E11.22 Type 2 diabetes mellitus with diabetic chronic kidney disease (principal); N18.6 End stage renal disease
CPT/HCPCS: 36415; 80069; 85027

== ENCOUNTER 2021-07-15 13:43 | Emergency (ER) | payer MEDICARE, MEDICAID, SELFPAY ==
[2021-07-15] VITALS (14 sets, daily range): BP systolic 96–160; BP diastolic 31–93; PULSE 77–90; RESP 16–30; TEMP 37.5–37.6; O2SAT 94–100; BMI 26.8
--- NOTE | 2021-07-15 13:45 | EKG12_ITS ---
Test Reason : STROKE Blood Pressure : / mmHG Vent. Rate : 089 BPM Atrial Rate : 089 BPM P-R Int : 196 ms QRS Dur : 076 ms QT Int : 374 ms P-R-T Axes : 069 -09 -09 degrees QTc Int : 455 ms Normal sinus rhythm Low voltage QRS (Limb Leads) Nonspecific ST and T wave abnormality Abnormal ECG Confirmed by SHARIF ROGERS, YAMILE ([id number]), brands editor CONRAD GARCIA ([id number]) on 07/18/2021 11:00:44 AM Referred By: LYNDA/RAMONE Confirmed By:YAMILE OLGUIN MD
--- NOTE | 2021-07-15 13:46 | RAD_ITS ---
STUDY: X-RAY CHEST REASON FOR EXAM: Female, 76 years old. Dyspnea, fever TECHNIQUE: Single AP portable view of the chest. COMPARISON: None. FINDINGS: A right-sided Port-A-Cath is seen with the tip at the junction of the superior vena cava and right atrium. There is elevation of the right hemidiaphragm with right basilar atelectasis and/or infiltrate. There is blunting of the left costophrenic angle. There is mild cardiac enlargement. Normal mediastinum and mohini. Normal visualized pulmonary arteries. There is atherosclerotic calcification of the aortic arch with tortuosity. Normal visualized thoracic spine. There is degenerative osteoarthritis of the bilateral shoulders. Vascular stents are seen in the left axillary region. There is no demonstrated abnormality of the visualized soft tissue structures of the upper abdomen. RAD/Chest 1 View (Portable) IMPRESSION: Elevation of the right hemidiaphragm with right basilar atelectasis and/or infiltrates. Electronically Signed: Shreyas Victoria MD at 15:04 EST , Service support ,
--- NOTE | 2021-07-15 13:46 | CT_ITS ---
STUDY: CTA HEAD AND NECK WITH CONTRAST REASON FOR EXAM: Female, 76 years old. Neuro deficit, acute, stroke suspected RADIATION DOSAGE (If Supplied By Facility): CTDIvol = ( 20.18 ) mGy, DLP = ( 725.00 ) mGycm TECHNIQUE: CT angiography was performed with a multi-detector CT scanner. Data acquisition was obtained from the skull base through the vertex following intravenous administration of IV 100mL [id number]-[id number]. MIP images were reconstructed from the axial data set. Post-processing of the angiographic images was performed, with multiplanar reformation and 3D reconstruction. Individualized dose optimization techniques were used for this CT. COMPARISON: No relevant priors. FINDINGS: Normal bilateral petrous carotid arteries. There is calcified plaque formation of the right cavernous carotid artery, without a cross-sectional luminal stenosis. There is calcified plaque formation of the left cavernous carotid artery, without a cross-sectional luminal stenosis. Normal right A1 segments of the anterior cerebral artery. Normal left A1 segments of the anterior cerebral artery. Normal intact anterior communicating artery (ACOM). Normal bilateral A2 segments of the anterior cerebral arteries. Normal right M1 and M2 segments of the middle cerebral arteries, with a normal M1 bifurcation. Normal left M1 and M2 segments of the middle cerebral arteries, with a normal M1 bifurcation. Normal right posterior communicating artery (PCOM). Normal left posterior communicating artery (PCOM). Normal bilateral vertebral arteries. Normal basilar artery with a normal basilar bifurcation. The visualized bilateral superior cerebellar (SCA) arteries are normal. Normal bilateral P1, P2 and visualized P3 segments of the posterior cerebral arteries. There is no demonstrated aneurysm of the [place] of [place]. AORTIC ARCH: There is atherosclerotic calcific plaque formation of the aortic arch and great vessels arising from the aortic arch, without a hemodynamically significant stenosis. There is a normal origin of the brachiocephalic, left common carotid, and left subclavian arteries. Atherosclerotic plaque formation at the origin of the left subclavian artery. There is a 1.5 cm x 1 cm cyst in the inferior aspect of the right lobe of the thyroid. This extends into the upper lobe. Heterogeneous appearance and enlargement of the upper pole of the right lobe. Tiny cystic changes in the left lobe. RIGHT CAROTID ARTERIES: Normal right common carotid artery (CCA). Normal right common carotid bulb. There is extensive atherosclerotic plaque formation of the origin of the right internal carotid artery with an estimated stenosis of greater than 70%. Normal visualized cervical portion of the right internal carotid artery. Normal origin of the right external carotid artery (ECA). LEFT CAROTID ARTERIES: Normal left common carotid artery (CCA). Normal left common carotid bulb. There is extensive atherosclerotic plaque formation of the origin of the left internal carotid artery with an estimated stenosis of greater than 70%. Normal visualized cervical portion of the left internal carotid artery. Normal origin of the left external carotid artery (ECA). VERTEBRAL ARTERIES: There is enhancement within the bilateral vertebral arteries with a small left vertebral artery, and a dominant right vertebral artery. Degenerative changes of the cervical vertebrae. CT/STROKE CTA Head AND Neck W/Con IMPRESSION: Greater than 70% narrowing at the origin of both right and left internal carotid artery due to calcific plaque formation. N.B. : The above Results were Read Back by Shreyas Victoria MD to Hector Kelsey and understanding confirmed on 07/15/2021 14:14:24 (ET). Electronically Signed: Shreyas Victoria MD at 14:15 EST , Service support ,
--- NOTE | 2021-07-15 13:46 | CT_ITS ---
STUDY: CT HEAD STROKE PROTOCOL W/O CONTRAST INJECTION REASON FOR EXAM: Female, 76 years old. Neuro deficit, acute, stroke suspected RADIATION DOSAGE (If Supplied By Facility): CTDIvol = ( 44.99 ) mGy, DLP = ( 829.85 ) mGycm TECHNIQUE: Transaxial CT imaging of the brain was performed without administration of intravenous contrast material. Individualized dose optimization techniques were used for this CT. COMPARISON: No relevant priors. FINDINGS: Normal soft tissue structures. Normal calvarium. There is mild cerebral atrophy with widening of the extra-axial spaces and ventricular dilatation. There are areas of decreased attenuation within the white matter tracts of the supratentorial brain, consistent with microvascular disease changes. There is an 8.1 mm x 4.3 mm acute hematoma in the left anterior thalamus. Normal brainstem. Normal cerebellum. There is no intracranial hemorrhage. There are no findings of an acute ischemic infarction. Normal visualized paranasal sinuses. CT/STROKE Brain/Head without Cont IMPRESSION: Chronic involutional changes of the brain. 8.1 mm x 4.3 mm acute hematoma in the left anterior thalamus. N.B. : The above Results were Read Back by Shreyas Victoria MD to [facility] and understanding confirmed on 07/15/2021 13:59:39 (ET). Electronically Signed: Shreyas Victoria MD at 14:00 EST , Service support ,
--- NOTE | 2021-07-15 14:01 | EDS_ITS ---
HPI History of Present Illness Chief Complaint: Neuro S/Sx Detail of Chief Complaint: Altered mental status and not moving right side Informant: patient, EMS and SNF Onset/Context/Timing Onset: Hours (45 minutes prior to arrival) Context: Sudden Onset Quality and Location: Positive for Right Arm Weakness, Right Leg Weakness and Difficulty with Ambulation Onset: 45 minutes prior to arrival Current Severity: Moderate Maximum Severity: Moderate Worsened by: Nothing Relieved by: Nothing Associated Symptoms Associated Symptoms: Negative for Headache, Nausea, Vomiting and Chest Pain Narrative Narrative: Patient presents with strokelike symptoms and documented temperature of 102. Patient has slight slurring of her words. There appears to be a facial droop on the right. She is not moving her right side. Her sensation is altered on the right side. Paperwork that accompanied her from long-term indicates he has elevated white count. She is DNR [facility] arrest. Patient is not a good informant. Prior similar symptoms: No Recent Illness/Hospitalization: No PFSH PFS Medical History Diabetes Hypertension Home Medications B complex with C 20-folic acid [Renal Caps] 1 cap PO DAILY 05/30/21 [History Last Taken Unknown] Lactobacillus rhamnosus GG 1 cap PO DAILY 05/30/21 [History Last Taken Unknown] acetaminophen 650 mg PO Q4H PRN 05/30/21 [History Last Taken Unknown] acetaminophen 650 mg NY Q4H PRN 05/30/21 [History Last Taken Unknown] ascorbic acid (vitamin C) 500 mg PO BID 05/30/21 [History Last Taken Unknown] aspirin 81 mg PO DAILY 05/30/21 [History Last Taken Unknown] bisacodyl 10 mg [place] DAILY PRN 05/30/21 [History Last Taken Unknown] calcitriol 0.25 mcg PO DAILY 05/30/21 [History Last Taken Unknown] calcium carbonate-vitamin D3 [Calcium 600 + D(3)] 1 tab PO BID 05/30/21 [History Last Taken Unknown] carvedilol 6.25 mg PO BID 05/30/21 [History Last Taken Unknown] dextrose [Glucose Gel] 15 g PO Q15M PRN 05/30/21 [History Last Taken Unknown] gabapentin 300 mg PO QHS 05/30/21 [History Last Taken Unknown] glucagon [Glucagon Emergency Kit] 1 mg IM PRN PRN 05/30/21 [History Last Taken Unknown] guaifenesin 200 mg PO Q4H PRN 05/30/21 [History Last Taken Unknown] insulin glargine [Lantus Solostar U-100 Insulin] 10 unit SUBCUT DAILY 05/30/21 [History Last Taken Unknown] insulin lispro [Humalog Pen] See Protocol SUBCUT TID 05/30/21 [History Last Taken Unknown] lidocaine-prilocaine 1 applic TOPICAL TUWEFR 05/30/21 [History Last Taken Unknown] magnesium hydroxide [Milk of Magnesia] 400 mg PO DAILY PRN 05/30/21 [History Last Taken Unknown] menthol-zinc oxide [Calmoseptine] 1 applic TOPICAL DAILY 05/30/21 [History Last Taken Unknown] midodrine 10 mg PO MOTUWEFR 05/30/21 [History Last Taken Unknown] nystatin 1 applic TOPICAL TID 05/30/21 [History Last Taken Unknown] omeprazole 40 mg PO DAILY 05/30/21 [History Last Taken Unknown] ondansetron HCl 4 mg PO Q8H PRN 05/30/21 [History Last Taken Unknown] paroxetine HCl 10 mg PO DAILY 05/30/21 [History Last Taken Unknown] potassium chloride 20 meq PO DAILY 05/30/21 [History Last Taken Unknown] sodium phosphates [Fleet Enema] 118 ml [place] DAILY PRN 05/30/21 [History Last Taken Unknown] zinc sulfate [Zinc-220] 50 mg PO QHS 05/30/21 [History Last Taken Unknown] Allergy/AdvReac Type Severity Reaction Status Date / Time Sulfa (Sulfonamide Allergy NEEDS Verified 07/15/21 13:53 Antibiotics) FOLLOW-UP Social History (Updated 07/15/21 @ 14:[address] Hector Kelsey MD) housing: long-term Smoking Status: Unknown if ever smoked substance use type: does not use ROS ROS ED Constitutional Constitutional ED: Reports fever(s) Eyes Eyes: Denies change in vision or diplopia Cardiovascular Cardiovascular: Denies chest pain Respiratory/Chest Respiratory/Chest: Denies cough, dyspnea or dyspnea on exertion Gastrointestinal Gastrointestinal: Reports nausea; Denies abdominal pain, diarrhea or vomiting Genitourinary Genitourinary ED: Denies dysuria, hematuria or urinary frequency Musculoskeletal Musculoskeletal: Denies arthralgias or myalgias Integumentary Denies rash Neurologic Neurologic: Reports paresthesias and weakness; Denies headache(s) Hematologic/Lymphatic Hematologic/Lymphatic: Denies easy bleeding or easy bruising EXAM Physical Exam Const Vital Signs: 07/15/21 13:45 07/15/21 13:56 07/15/21 14:02 Temperature 99.7 F H Temperature Source Oral Pulse Rate 90 89 Respiratory Rate 16 20 H Blood Pressure 135/79 H 121/93 H Blood Pressure Mean 97 102 Pulse Ox 98 100 Oxygen Delivery Method Nasal Cannula Nasal Cannula Nasal Cannula Oxygen Flow Rate (L/min) 3 3 3 07/15/21 14:03 07/15/21 14:04 07/15/21 14:10 Temperature Temperature Source Pulse Rate 90 77 Respiratory Rate 29 H 26 H Blood Pressure 160/71 H 160/71 H 96/60 Blood Pressure Mean 100 100 72 Pulse Ox 100 98 Oxygen Delivery Method Nasal Cannula Nasal Cannula Oxygen Flow Rate (L/min) 3 3 07/15/21 14:14 07/15/21 14:19 07/15/21 14:22 Temperature 99.6 F H Temperature Source Oral Pulse Rate 79 Respiratory Rate 19 H Blood Pressure 104/31 L 110/46 L Blood Pressure Mean 55 67 Pulse Ox 97 Oxygen Delivery Method Nasal Cannula Oxygen Flow Rate (L/min) 3 07/15/21 14:25 07/15/21 14:30 07/15/21 14:34 Temperature Temperature Source Pulse Rate 78 78 78 Respiratory Rate 25 H 30 H 25 H Blood Pressure 110/46 L 117/47 L 117/47 L Blood Pressure Mean 67 70 70 Pulse Ox 98 95 96 Oxygen Delivery Method Nasal Cannula Nasal Cannula Oxygen Flow Rate (L/min) 3 3 07/15/21 14:40 07/15/21 14:43 07/15/21 14:47 Temperature 99.5 F H Temperature Source Oral Pulse Rate 78 77 77 Respiratory Rate 20 H 19 H 19 H Blood Pressure 117/47 L 110/42 L 118/47 L Blood Pressure Mean 70 64 70 Pulse Ox 96 94 97 Oxygen Delivery Method Nasal Cannula Nasal Cannula Nasal Cannula Oxygen Flow Rate (L/min) 3 3 HEENT Reports TM's clear and dry mucous membranes atraumatic Tympanic Membrane ED: Yes TM's clear Mouth ED: Yes dry mucous membranes Mouth: dry mucous membranes Eyes PERRL and EOMs intact bilaterally General Eye ED: Negative for pale conjunctiva or scleral icterus Neck no lymphadenopathy, supple and no JVD Chest Wall inspection of chest normal Resp normal respiratory effort and clear to auscultation bilaterally Cardio no murmurs Rate: regular rate Rhythm: regular rhythm Heart Sounds: S1 normal and S2 normal GI normal to inspection, nondistended, normoactive bowel sounds and soft to palpation Extremity General Extremety ED: Yes edema; Negative for deformity or tenderness General Extremity: edema; Negative for deformity Neuro oriented x3 and No CN's II-XII intact bilaterally Nurys Coma Scale: document GCS findings Spontaneous Obeys Commands Oriented 15 Sensorium / Orientation: Negative for alert Gait (Neuro): Negative for normal gait Sensory Exam: sensory level loss detected Motor Exam: strength abnormal; Negative for strength 5/5 throughout Psych mental status grossly normal Skin no wounds General Skin Exam: Negative for jaundice Lesions: no lesions STROKE Vital Signs/Narrative: Vital Signs Temp Pulse Resp BP Pulse Ox 07/15/21 14:47 99.5 F H 77 19 H 118/47 L 97 07/15/21 14:43 77 19 H 110/42 L 94 07/15/21 14:40 78 20 H 117/47 L 96 07/15/21 14:34 78 25 H 117/47 L 96 07/15/21 14:30 78 30 H 117/47 L 95 07/15/21 14:25 78 25 H 110/46 L 98 07/15/21 14:22 110/46 L 07/15/21 14:19 79 19 H 104/31 L 97 07/15/21 14:14 99.6 F H 07/15/21 14:10 77 26 H 96/60 98 07/15/21 14:04 90 29 H 160/71 H 100 07/15/21 14:03 160/71 H 07/15/21 13:56 99.7 F H 89 20 H 121/93 H 100 07/15/21 13:45 90 16 135/79 H 98 NIHSS Initial: 1a Level of Consciousness: 1 1b LOC Questions (Score 2 if aphasic/stupor): 0 1c LOC Commands (Only score 1st attempt): 0 2 Best Gaze (If aphasic, use reflexive mvmts.): 0 3 Visual: 0 4 Facial Palsy: 1 5 Motor Arm Right (UN = amputation/fusion): 0 5 Motor Arm Left: 3 6 Motor Leg Right: 4 (Has not walked in some time) 6 Motor Leg Left: 4 (Has not walked in some time and has a midfoot amputation) 7 Limb ataxia (Only + if out of proportion): 0 8 Sensory (Aphasia/stupor=0 or 1, coma=2): 1 9 Best Language: 0 10 Dysarthria (mute, coma=2, intubated=UN): 1 11 Extinction and Inattention (only scored if +): 0 Total Score: 15 MDM MDM MDM Narrative Medical decision making narrative: Document elevated temperature and white count sepsis work-up was initiated as well as stroke protocol. Stroke order set was initiated as well as sepsis order set. Nurse contacted long-term facility. She is DNR [facility]fort [facility] arrest. After reviewing CAT scan and noticing patient has a right thalamic bleed hemorrhagic stroke order set was initiated. Since the onset was approximate 45 minutes prior to arrival CT of the head and CTA of the head neck was ordered. Lab Data Attestation: I reviewed the patient's lab results. Lab results narrative: Transport team is here to transport patient to [facility]. Labs are still pending. Labs: Laboratory Results - last 24 hr 07/15/21 07/15/21 13:58 13:58 WBC 11.1 H RBC 3.47 L Hgb 9.1 L Hct 29.6 L MCV 85.3 MCH 26.2 L MCHC 30.7 L RDW Std Deviation 60.0 H RDW Coeff of Cat 19.4 H Plt Count 162 MPV 10.7 Immature Gran % (Auto) 0.600 Neut % (Auto) 87.0 H Lymph % (Auto) 6.0 L [place] % (Auto) 6.0 Eos % (Auto) 0.0 Baso % (Auto) 0.4 Absolute Neuts (auto) 9.7 H Absolute Lymphs (auto) 0.67 L Nucleated RBC % 0 PT 15.1 H INR 1.3 APTT 58.7 H Radiography Diagnostic Testing: Clinical Impression(s) from Imaging Studies Brain CT 07/15/21 13:46 IMPRESSION: Chronic involutional changes of the brain. 8.1 mm x 4.3 mm acute hematoma in the left anterior thalamus. N.B. : The above Results were Read Back by Shreyas Victoria MD to Hector Kelsey and understanding confirmed on 07/15/2021 13:59:39 (ET). Electronically Signed: Shreyas Victoria MD at 14:00 EST , Service support , ADDENDUM: 07/15/21 1407 IMPRESSION: Chronic involutional changes of the brain. 8.1 mm x 4.3 mm acute hematoma in the left anterior thalamus. N.B. : The above Results were Read Back by Shreyas Victoria MD to Hector Kelsey and understanding confirmed on 07/15/2021 13:59:39 (ET). 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 N.B. : The above Results were Read Back by Shreyas Victoria MD to [facility] and understanding confirmed on 07/15/2021 14:14:24 (ET). 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 N.B. : The above Results were Read Back by [facility] and understanding confirmed on 07/15/2021 14:14:24 (ET). Electronically Signed: Shreyas Victoria MD at 14:15 EST , Service support , Single view portable chest x-ray reveals elevated right hemidiaphragm with scarring at the base. There is fluid in the fissure. Patient is rotated. There may be an infiltrate in the right upper lobe. Heart size is borderline. Osseous structures are unremarkable. Single view portable chest x-ray is interpreted by me at 1450. EKG Initial EKG: Attestation: I personally reviewed and interpreted this EKG as follows: Interpretation: Sinus Rhythm (Rate is 89. NY interval is 196 ms. Cures duration 76 ms. QT duration 3 and 74 ms. [place] is normal. Computer is reading ossific changes which is predominantly artifact. There is decreased anterior force noted. Voltage is borderline low.) Stroke Documentation Questions Stroke Team Activated: Yes Reviewed Inclusion/Exclusion criteria: Yes Was Patient considered for Endovascular Intervention?: No IV Alteplase (t-PA) Administered: No No contraindications for IV Alteplase (t-PA) administration.: No Alteplase (t-PA) risks, benefits, alternative discussed: No Not given: Patient refusal: No Critical Care Time Critical Care Time: Yes Critical care time (excluding procedures): 30-74 minutes (33 minutes), Including time spent: (Street, physical, documentation, review of long-term records, discussion with nurse at [facility] transfer line,), Discussing w/Patient &/or Family/Quality Assurance Nurse, Discussing w/Consultants and Arranging Admission or Transfer Discharge Plan Triage Chief Complaint: Neuro S/Sx ED Provider: Hector Kelsey Dx/Rx/DC Orders Clinical Impression: Thalamic hemorrhage with stroke, Sepsis Prescriptions: No Action acetaminophen 325 mg Tablet 650 mg PO Q4H PRN (Reason: PAIN/FEVER) RF: 0 acetaminophen 650 mg Suppository 650 mg [place] Q4H PRN (Reason: PAIN/FEVER) RF: 0 aspirin 81 mg Tablet,Delayed Release (Dr/Ec) 81 mg PO DAILY RF: 0 ascorbic acid (vitamin C) 500 mg Tablet 500 mg PO BID RF: 0 bisacodyl 10 mg Suppository 10 mg [place] DAILY PRN (Reason: Constipation) RF: 0 calcitriol 0.25 mcg Capsule 0.25 mcg PO DAILY RF: 0 carvedilol 6.25 mg Tablet 6.25 mg PO BID RF: 0 calcium carbonate-vitamin D3 [Calcium 600 + D(3)] 600 mg(1,500mg) -400 unit Tablet 1 tab PO BID RF: 0 menthol-zinc oxide [Calmoseptine] 0.44-20.6 % Ointment 1 applic TOPICAL DAILY RF: 0 Glucagon Emergency Kit 1 mg Kit 1 mg IM PRN PRN (Reason: Hypoglycemia) RF: 0 paroxetine HCl 10 mg Tablet 10 mg PO DAILY RF: 0 ondansetron HCl 4 mg Tablet 4 mg PO Q8H PRN (Reason: Nausea) RF: 0 dextrose [Glucose Gel] 40 % Gel 15 g PO Q15M PRN (Reason: Hypoglycemia) RF: 0 omeprazole 40 mg Capsule,Delayed Release(Dr/Ec) 40 mg PO DAILY RF: 0 guaifenesin 100 mg/5 mL Liquid 200 mg PO Q4H PRN (Reason: Cough) RF: 0 lidocaine-prilocaine 2.5-2.5 % Cream 1 applic topical TUWEFR RF: 0 magnesium hydroxide [Milk of Magnesia] 400 mg/5 mL Suspension 400 mg PO DAILY PRN (Reason: Constipation) RF: 0 Fleet Enema 19-7 gram/118 mL Enema 118 ml [place] DAILY PRN (Reason: Constipation) RF: 0 gabapentin 300 mg Capsule 300 mg PO QHS RF: 0 nystatin 100,000 unit/gram Powder 1 applic TOPICAL TID RF: 0 Renal Caps 1 mg Capsule 1 cap PO DAILY RF: 0 Lactobacillus rhamnosus GG 10 billion cell Capsule 1 cap PO DAILY RF: 0 midodrine 10 mg Tablet 10 mg PO MOTUWEFR RF: 0 insulin lispro [Humalog Pen] 100 unit/mL Insulin Pen See Protocol unit SUBCUT TID RF: 0 zinc sulfate [Zinc-220] 50 mg zinc (220 mg) Capsule 50 mg PO QHS RF: 0 Lantus Solostar U-100 Insulin 100 unit/mL (3 mL) Insulin Pen 10 unit SUBCUT DAILY RF: 0 potassium chloride 20 mEq Tablet Extended Release 20 meq PO DAILY RF: 0 Primary Care Provider: Laura Sandhu Referrals: Laura Sandhu MD [Primary Care Provider] -
--- NOTE | 2021-07-15 14:03 | ED.RN ---
Zachary called and updated on patients status and pending transfer to [facility] hospital. He states to have someone call him when she gets to [facility]. He will not be traveling to either hospital at this time.
[2021-07-15] MEDS: Labetalol (Prefilled) 20 MG/4 ML IV (14:09)
--- NOTE | 2021-07-15 14:19 | ED.RN ---
PER [employer] DUE TO WEATHER UNABLE TO FLY TO [place] OR [place]
--- NOTE | 2021-07-15 14:26 | CM.ED ---
SOCIAL WORK Responded to Stroke Alert. No family present. supply chain manager contacted family, patient from residential. Plan for transfer to [facility]. Karen Vásquez, DOPE DRY HOUSE OPERATOR, FILTRATION PLANT OPERATOR
[2021-07-15 14:41] LABS: Absolute Lymphocyte Count 0.67 X10^3/uL (0.83-4.51); Absolute Neutrophil Count 9.7 X10^3/uL (2.0-7.7); Basophil# 0.04 X10^3/uL; Basophil% 0.4 % (0-1); Hematocrit 29.6 % (37-47); Hemoglobin 9.1 g/dL (12.0-15.0); Lymphocyte # 0.67 X10^3/ul (0.83-4.51); Mean Corp Hgb Conc 30.7 g/dL (32-36); Mean Corpuscular Hgb 26.2 pg (27.0-32.0); Mean Corpuscular Volume 85.3 fL (81-99); Mean Platelet Vol. 10.7 fl (6.2-12.0); Monocyte# 0.66 X10^3/uL; NRBC Flagged by Analyzer 0 % (0-5); Neutrophil # 9.65 X10^3/uL (2.7-7.7); Platelet Count 162 K/mm3 (150-450); RBC Distribution Width CV 19.4 % (11.6-14.6); Red Blood Count 3.47 M/mm3 (4.2-5.4); White Blood Count 11.1 K/mm3 (4.4-11.0)
--- NOTE | 2021-07-15 14:42 | ED.RN ---
MINIMAL URINE IN THE [facility] LINE, UNABLE TO COLLECT AT THIS TIME.
--- NOTE | 2021-07-15 14:44 | ED.RN ---
EMS IN THE DEPARTMENT
[2021-07-15 14:47] LABS: International Normalized Ratio 1.3; Prothrombin Time (Protime)PT. 15.1 SECONDS (11.7-14.9)
[2021-07-15 14:48] LABS: Partial Thromboplast Time 58.7 Seconds (24.1-36.2)
[2021-07-15 14:58] LABS: ALB/GLOB Ratio 0.5 RATIO (0.9-2.4); AST(SGOT) 12 U/L (15-37); Alanine Aminotransfer ALT/SGPT 13 U/L (13-56); Albumin, Serum 1.8 g/dL (3.2-5.0); Alkaline Phosphatase 73 U/L (45-117); Anion Gap 10 (5-15); BUN 30 mg/dL (7-18); BUN/Creat Ratio 11.3 RATIO (10-20); Calcium,Total 8.3 mg/dL (8.5-10.1); Chloride 97 mmol/L (98-107); Creatinine, Serum 2.65 mg/dL (0.55-1.02); EST Glomerular Filtration Rate 19 mL/min (>60); Est Glom Filt Rate - Afr Amer 23 mL/min (>60); Estimated Creatinine Clearance 16.25 ml/min; Globulin 3.5 g/dL (2.2-4.2); Glucose 87 mg/dL (74-106); Potassium 4.3 mmol/L (3.5-5.1); Protein, Total 5.3 g/dL (6.4-8.2); Sodium Level 134 mmol/L (136-145); Troponin-I HS 23 pg/mL (3.0-54.0)
[2021-07-15 15:04] LABS: Lactic Acid 8.1 mmol/L (0.4-1.9)
[2021-07-15 18:48] LABS: Reflex Lactate? Y
== END 2021-07-15 14:53 | disposition short-term general hospital (02) ==
PROVIDERS: Emergency Provider Emergency Medicine; PCP Internal Medicine; Visit Provider Emergency Medicine
DX: I61.0 Nontraumatic intracerebral hemorrhage in hemisphere, subcortical (principal); A41.9 Sepsis, unspecified organism
CPT/HCPCS: 36591; 70450; 70496; 70498; 71045; 80053; 83605; 84484; 85025; 85610; 85730; 87040; 87077; 87186; 87426; 93005; 96365; 99285; Q9967

== ENCOUNTER → 2021-07-15 | Outpatient (REF) | payer MEDICARE, MEDICAID, SELFPAY ==
[2021-07-15 07:55] LABS: Albumin, Serum 2.2 g/dL (3.2-5.0); BUN 44 mg/dL (7-18); BUN/Creat Ratio 12.5 RATIO (10-20); Calcium,Total 8.7 mg/dL (8.5-10.1); Chloride 100 mmol/L (98-107); Creatinine, Serum 3.53 mg/dL (0.55-1.02); EST Glomerular Filtration Rate 13 mL/min (>60); Est Glom Filt Rate - Afr Amer 16 mL/min (>60); Glucose 64 mg/dL (74-106); Phosphorus 4.1 mg/dL (2.5-4.9); Potassium 5.7 mmol/L (3.5-5.1); Sodium Level 136 mmol/L (136-145)
[2021-07-15 08:10] LABS: Hematocrit 36.3 % (37-47); Hemoglobin 11.2 g/dL (12.0-15.0); Mean Corp Hgb Conc 30.9 g/dL (32-36); Mean Corpuscular Hgb 25.9 pg (27.0-32.0); Mean Corpuscular Volume 83.8 fL (81-99); Platelet Count 209 K/mm3 (150-450); RBC Distribution Width CV 19.6 % (11.6-14.6); RBC Distribution Width SD 58.7 fl (35.1-43.9); Red Blood Count 4.33 M/mm3 (4.2-5.4); White Blood Count 13.4 K/mm3 (4.4-11.0)
== END | disposition home or self-care (01) ==
LOC: OLS.SW300 05:20
PROVIDERS: PCP Internal Medicine; Visit Provider Internal Medicine
DX: E11.40 Type 2 diabetes mellitus with diabetic neuropathy, unspecified (principal); E11.22 Type 2 diabetes mellitus with diabetic chronic kidney disease; N18.6 End stage renal disease
CPT/HCPCS: 36415; 80069; 85027